=== PATIENT | female | born 1940 | race Caucasian/White ===

== ENCOUNTER → 2019-01-07 | Outpatient (CLI) | payer OTHER ==
[~2019-01-07] MED LIST: BACLOFEN 10MG T10 M1 PO; CIPROFLOXACIN500 M1 PO; FLEXERIL; OMEPRAZOLE 20 M20 M1 PO; VICODIN 5-5001 EACH PO; VICOPROFEN 2001 EACH PO
== END ==
LOC: M.LAB 00:37
DX: E87.6 Hypokalemia (principal)